=== PATIENT | female | born 1975 | race Caucasian/White ===

== ENCOUNTER 2018-07-09 12:26 | Outpatient (REF) | payer MEDICAID, SELFPAY ==
--- NOTE | 2018-07-09 11:00 | PAPFT_PTH ---
PATIENT: CHITO KUMAR LOC: [facility] U#:[id number] AGE/SX: 42/F ROOM: RE07/09/[address]: Kaylin Kelly RN : 1975 BED: DIS: 07/09/2018 SPEC #: [id number] RECD: 07/09/18 17:37 STATUS: RICHARD REDamari #: [id number] LUIS: 07/09/18 11:[address]: Kaylin Kelly DEPT: [facility] Cytology RECD BY: Aga Pedroza ENTERED: 07/09/18 17:38 SP TYPE: PAPFT OTHR DR: Arina Leggett Tissues: 1 - CX/ENDOCX FOR PAP SMEARS Procedures: PAP THIN PREP/[facility] Screening HPV DNA PROBE Comments: [id number]
== END 2018-07-09 12:46 ==
LOC: LBN 12:26
PROVIDERS: PCP Internal Medicine; Visit Provider Advanced Practice Midwife
DX: Z12.4 Encounter for screening for malignant neoplasm of cervix (principal); Z11.51 Encounter for screening for human papillomavirus (HPV)
CPT/HCPCS: 88142; 87624

== ENCOUNTER 2018-07-28 00:16 | Outpatient (CLI) | payer MEDICAID, SELFPAY ==
--- NOTE | 2018-07-28 07:54 | DI.MAMMO_ITS ---
SYMPTOMS/DIAGNOSIS: SCREENING MAMMOGRAM: Mammograms were interpreted according to the usual protocol including computer analysis with CAD system, tomosynthesis and C view imaging. No priors. Breast density B. No suspicious masses or microcalcifications are seen. The skin and axilla are unremarkable. IMPRESSION: No evidence for malignancy. Yearly mammography is recommended. Category I. MQSA ASSESSMENT OF FINDINGS: Negative. Category 1. Patient will receive a letter notifying them of these results. BI-RADS category B. There are scattered areas of fibroglandular density.
== END 2018-07-28 00:36 ==
PROVIDERS: PCP Internal Medicine; Visit Provider Advanced Practice Midwife
DX: Z12.31 Encounter for screening mammogram for malignant neoplasm of breast (principal)
CPT/HCPCS: 77063; 77067